=== PATIENT | male | born 1945 | race Caucasian/White ===

== ENCOUNTER → 2016-04-21 | Outpatient (CLI) | payer MEDICARE ==
[~2016-04-21] MED LIST: CHOL100018 PO; COENZYME Q10 21 EACH PO; GLUC500T8 PO; HYAL1CAP PO; HYDR-3240 PO; PHEN-418 PO
== END | disposition home or self-care (01) ==
LOC: RAD 15:08
PROVIDERS: ATTEND Family Medicine
DX: K40.90 Unilateral inguinal hernia, without obstruction or gangrene, not specified as recurrent (principal); N13.2 Hydronephrosis with renal and ureteral calculous obstruction; N20.0 Calculus of kidney; K63.89 Other specified diseases of intestine; J98.11 Atelectasis; I87.8 Other specified disorders of veins; S32.018A Other fracture of first lumbar vertebra, initial encounter for closed fracture; S32.028A Other fracture of second lumbar vertebra, initial encounter for closed fracture; S32.038A Other fracture of third lumbar vertebra, initial encounter for closed fracture; M50.20 Other cervical disc displacement, unspecified cervical region; X58.XXXA Exposure to other specified factors, initial encounter; Y93.89 Activity, other specified; Y92.89 Other specified places as the place of occurrence of the external cause; Y99.8 Other external cause status
CPT/HCPCS: 36415; 74176; 82565

== ENCOUNTER 2016-04-22 05:04 | Observation (INO) | payer MEDICARE ==
[~2016-04-22] VITALS: Ht 180.3 cm; Wt 87.6 kg
[~2016-04-22 05:04] MED LIST changes: -PHEN-418 PO
[2016-04-22] MEDS ORDERED: ONDANSETRON 2MG/ML, 2ML IVPush ONE ×2 (06:00→08:30)
[2016-04-22 06:30] LABS: HEMOGLOBIN 14.1 g/dL (13.7-18.0)
[2016-04-22 06:39] LABS: BLOOD UREA NITROGEN 21 mg/dL (7-18)
[2016-04-22 06:43] LABS: ASPARTATE AMINO TRANSFERASE 12 U/L (15-37)
[2016-04-22] MEDS ORDERED: TAMSULOSIN 0.4 MG CAP.ER.24H ONE (08:28)
[2016-04-22] MEDS ORDERED: MORPHINE SULFATE 4 MG/ML, 1ML ONE ×2 (08:28→11:24)
[2016-04-22] MEDS ORDERED: ONDANSETRON 2MG/ML, 2ML ONE ×2 (08:29→12:59)
[2016-04-22] MEDS ORDERED: TAMSULOSIN 0.4 MG CAP.ER.24H PO ONE (08:30)
[2016-04-22] MEDS: MORPHINE SULFATE 4 MG/ML, 1ML IVPush PRN ×2 (08:40→11:26)
[2016-04-22 10:03] LABS: PATH.CAST-FLAG NOT PRESENT; SPERM-FLAG NOT PRESENT; SRC-FLAG NOT PRESENT; XTAL-FLAG NOT PRESENT; YLC-FLAG NOT PRESENT
[2016-04-22] MEDS ORDERED: SODIUM CHLORIDE FLUSH 10ML SYR IVF PRN (11:00)
[2016-04-22] MEDS ORDERED: MIDAZOLAM 1 MG/ML, 2ML ONE (12:55)
[2016-04-22] MEDS ORDERED: FENTANYL PF 250 MCG/5ML ONE (12:55)
[2016-04-22] MEDS ORDERED: ROCURONIUM 10 MG/ML ONE (12:59)
[2016-04-22] MEDS ORDERED: EPHEDRINE 50 MG/ML, 1ML ONE (12:59)
[2016-04-22] MEDS ORDERED: DEXAMETHASONE 4 MG/ML, 1ML ONE (12:59)
[2016-04-22] MEDS ORDERED: CEFAZOLIN 1,000 MG ONE (12:59)
[2016-04-22] MEDS ORDERED: SUCCINYLCHOLINE 20 MG/ML, 10ML ONE (12:59)
[2016-04-22] MEDS ORDERED: PROPOFOL 10 MG/ML, 20ML ONE (12:59)
[2016-04-22] MEDS ORDERED: OMNIPAQUE 350 MG/ML, 50 ML BOTTLE IV ONE (13:51)
[2016-04-22] MEDS ORDERED: OXYcodone 5 MG/5 ML ORAL.SOL UDC PO PRN (14:00)
[2016-04-22] MEDS ORDERED: ACETAMINOPHEN 325 MG TABLET PO PRN (14:00)
[2016-04-22] MEDS ORDERED: HYDROmorphone 1 MG/ML, 1ML IV PRN (14:00)
[2016-04-22] MEDS ORDERED: PROMETHAZINE 25 MG/ML, 1ML IV PRN (14:00)
[2016-04-22] MEDS ORDERED: FENTANYL PF 100 MCG/2ML IV PRN (14:00)
[2016-04-22] MEDS ORDERED: OXYcodone 5 MG/5 ML ORAL.SOL UDC ONE (14:26)
[2016-04-22 15:20] VITALS: BP 132/82
[2016-04-22] MEDS ORDERED: HYDR-3240 PO (15:20)
[2016-04-22] MEDS ORDERED: PHEN-418 PO (15:20)
[2016-04-22] MEDS ORDERED: D5%-0.9% NACL 1,000 ML IV SCH (15:30)
[2016-04-22] MEDS ORDERED: HYDROcodone/APAP 5/325 TABLET PO PRN (15:30)
[2016-04-22] MEDS ORDERED: MORPHINE SULFATE 4 MG/ML, 1ML IVPush PRN (15:30)
[2016-04-22 16:00] VITALS: BP 132/79
== END 2016-04-22 16:25 | disposition home or self-care (01) ==
LOC: ED 10:05 → EDIP 10:50 → 4NOR 12:07
PROVIDERS: ADMIT Urology; ATTEND Urology
DX: N20.2 Calculus of kidney with calculus of ureter (principal)
CPT/HCPCS: 36415; 52356; 74420; 80053; 81001; 82360; 85025; 88300; 96374; 96375; 96376; 99285; C1726; C1758; C1769; C2617; G0378; J0330; J0690; J1100; J2250; J2405; J2704; J3010; Q9967